=== PATIENT | male | born 1960 | race Caucasian/White ===

== ENCOUNTER 2023-04-27 19:40 | Emergency (ER) | payer MEDICARE, BC ==
[~2023-04-27] VITALS: Ht 190.5 cm; Wt 95.7 kg
[2023-04-27] MEDS ORDERED: CEPHALEXIN500 M1 PO (22:00)
[2023-04-27 22:16] VITALS: BP 155/80
== END 2023-04-27 22:16 | disposition home or self-care (01) ==
LOC: ED 19:40
DX: N39.0 Urinary tract infection, site not specified (principal); Z88.1 Allergy status to other antibiotic agents
CPT/HCPCS: 81001; 87088; 99283; A9270